=== PATIENT | female | born 1975 | race Caucasian/White ===

== ENCOUNTER 2018-12-12 03:30 | Emergency (ER) | payer BC ==
[~2018-12-12] VITALS: Ht 165.1 cm; Wt 65.9 kg
[2018-12-12 03:35] VITALS: Ht 165.1 cm; Wt 65.9 kg
--- NOTE | 2018-12-12 03:38 | ERD ---
ER Documentation Chief Complaint Chief Complaint Swollen lips HPI The patient is a 43-year-old female, presenting to the ER because of swollen lips swollen eyelids for 1 day. She was in [place] celebrating and did not remember what she ate or drink. She denies blurred vision, dysphonia, dysarthria, dysphagia, chest pain, dyspnea, abdominal pain, vomiting, dysuria, diarrhea. She smokes, denies drinking Past medical history: None Past surgical history: Appendectomy, ectopic , breast implant ROS All systems reviewed and are negative except as per history of present illness. Medications Home Meds Active Scripts Famotidine* (Pepcid*) 20 Mg Tablet, 20 MG PO BID, #10 TAB Prov:OCTAVIO ROSALES MD 12/12/18 Prednisone* (Prednisone*) 20 Mg Tab, 60 MG PO DAILY for 5 Days, TAB Prov:OCTAVIO ROSALES MD 12/12/18 Allergies Allergies: Coded Allergies: No Known Allergy (Unverified , 12/12/18) Physical Exam Vitals Vital Signs Date Temp Pulse Resp B/P (MAP) Pulse Ox O2 O2 Flow FiO2 Time Delivery Rate 12/12/18 73 21 119/77 100 Room Air 05:36 (91) 12/12/18 97.6 76 16 121/78 100 03:35 (92) Physical Exam Const: No acute distress. Head: Atraumatic. Eyes: Normal Conjunctiva.Minimally edematous eyelids ENT: Normal External Ears, Nose and Mouth. Minimal upper and lower lip edema Neck: Full range of motion. No meningismus. Resp: Clear to auscultation bilaterally. Cardio: Regular rate and rhythm. Abd: Soft, non distended, normal bowel sounds, non tender. Skin: No petechiae or rashes. Back: No midline or flank tenderness. Ext: No cyanosis, or edema. Neur: Awake and alert. No focal deficit Psych: Normal Mood and Affect. Results 24 hrs Current Medications Medications Dose Sig/Hesham Start Time Status Last (Trade) Ordered Route PRN Stop Time Admin Dose Reason Admin 125 mg ONCE ONCE 12/12/18 DC 12/12/18 Methylprednis IV 04:00 04:03 olone Sodium 12/12/18 04:01 Succinate (Solu-Medrol) Famotidine 20 mg ONCE ONCE 12/12/18 DC 12/12/18 (Pepcid Iv) IV 04:00 04:03 12/12/18 04:01 Procedures/MDM MEDICAL MAKING DECISION: The patient is a 43-year-old female, presenting with allergic reaction, suspicious for angioedema. She took Benadryl 50 mg p.o. 4- hour prior to coming to emergency department, she was treated with Solu-Medrol 125 mg IV, Pepcid 25 mg IV with good response. The differential diagnoses considered include but are not limited to acute anaphylaxis, acute angioedema, food allergy Departure Diagnosis: Primary Impression: Allergic reaction Condition: Good Comments She was discharged with prednisone and Pepcid I discussed the findings with the patient. I advised the patient to follow-up with the primary physician in about 2-3 days, sooner if needed and return if any concern. Disclaimer: Inadvertent spelling and grammatical errors are likely due to EHR/dictation software use and do not reflect on the overall quality of patient care. Also, please note that the electronic time recorded on this note does not necessarily reflect the actual time of the patient encounter. OCTAVIO ROSALES MD Dec 12, 2018 03:38
[2018-12-12] MEDS ORDERED: FAMOTIDINE 20 MG INJ IV ONE (04:00)
[2018-12-12] MEDS ORDERED: METHYLPREDNISOLONE 125 MG INJ IV ONE (04:00)
[2018-12-12] MEDS ORDERED: PRED20TA PO (05:31)
[2018-12-12] MEDS ORDERED: FAMO-96 PO (05:31)
[2018-12-12 05:36] VITALS: BP 119/77; PULSE 73; RESP 21
== END 2018-12-12 05:41 | disposition home or self-care (01) ==
LOC: E/R 03:30
DX: R60.0 Localized edema (principal)
CPT/HCPCS: 96374; 96375; 99284; J2930